=== PATIENT | female | born 1985 | race Two or more races ===

== ENCOUNTER 2018-05-30 16:42 | Inpatient (IN) | payer OTHER ==
[~2018-05-30] VITALS: Ht 157.5 cm; Wt 108.9 kg
== END 2018-06-09 13:30 | disposition home or self-care (01) | DRG 394 ==
LOC: ER 16:42 → SURG 05-31 17:04 → SEC-K 05-31 17:04 → SURG 05-31 22:08 → SEC-K 06-01 03:05 → SURG 06-01 03:06 → SURH 06-08 14:25
PROC: BW25Y0Z Computerized Tomography (CT Scan) of Chest, Abdomen and Pelvis using Other Contrast, Unenhanced and Enhanced (ICD-10-PCS; principal; 2018-05-31)
PROC: BW3GYZZ Magnetic Resonance Imaging (MRI) of Pelvic Region using Other Contrast (ICD-10-PCS; 2018-06-02)
PROC: BU4CZZZ Ultrasonography of Uterus and Ovaries (ICD-10-PCS; 2018-06-03)
DX: I88.0 Nonspecific mesenteric lymphadenitis (principal); N70.01 Acute salpingitis; D50.8 Other iron deficiency anemias; E66.01 Morbid (severe) obesity due to excess calories; I10 Essential (primary) hypertension
CPT/HCPCS: 72197

== ENCOUNTER → 2020-04-09 | Outpatient (CLI) | payer OTHER | END | disposition home or self-care (01) | LOC: RX STUDY 10:30 | PROVIDERS: ATTEND Obstetrics & Gynecology | DX: N70.11 Chronic salpingitis (principal) ==